=== PATIENT | male | born 1965 | race Caucasian/White ===

== ENCOUNTER 2020-06-16 20:33 | Emergency (ER) | payer OTHER ==
[~2020-06-16 20:33] MED LIST: LEVAQUIN500 MG PO; PREDNISONE 20MG20 MG PO; PROAIR HFA8.5 GM INH; TESSALON PERLE100 M1 PO
[2020-06-16] MEDS ORDERED: NORCO 5-325 TA1 EACH PO (23:25)
== END 2020-06-16 23:38 | disposition home or self-care (01) ==
LOC: FER 20:33
DX: S92.355A Nondisplaced fracture of fifth metatarsal bone, left foot, initial encounter for closed fracture (principal); I10 Essential (primary) hypertension; E78.5 Hyperlipidemia, unspecified; Z85.118 Personal history of other malignant neoplasm of bronchus and lung; Z90.2 Acquired absence of lung [part of]; Z98.1 Arthrodesis status; W19.XXXA Unspecified fall, initial encounter; Y92.009 Unspecified place in unspecified non-institutional (private) residence as the place of occurrence of the external cause; Z79.899 Other long term (current) drug therapy
CPT/HCPCS: 73610; 73630